=== PATIENT | female | born 1970 | race Caucasian/White ===

== ENCOUNTER 2017-07-27 05:30 | Emergency (ER) | payer BC ==
[~2017-07-27] VITALS: Ht 170.2 cm; Wt 74.4 kg
[2017-07-27 05:31] VITALS: BP 168/98; PULSE 93; RESP 18; TEMP 97.1; O2SAT 96
[2017-07-27] MEDS ORDERED: ONDANSETRON HCL 4 MG/2 ML VIAL IVP ONE (06:00)
[2017-07-27] MEDS ORDERED: SODIUM CHLORIDE 0.9% FLUSH 10 ML FLUSH IVF PRN ×2 (06:00→06:45)
--- NOTE | 2017-07-27 06:12 | PD ---
HPI Chief Complaint: Headache Time Seen by Provider: 06:00 Travel History International Travel<30 days: No Contact w/Intl Traveler<30days: No Traveled to known affect area: No History of Present Illness HPI 46 year old female presents to the emergency department by private transportation the care of her family for evaluation of headache. Patient states she awakened from sleep at 2 AM with her headache 8/10 in intensity that is not typical of her migraine headache history. Patient states pain was primarily posterior and in the neck area. Patient states that her migraines are typically more frontal. Patient states she took Relpax which she typically takes for her headaches and did not have relief. Patient states she also takes propranolol for history of hypertension and has been taking her medication routinely and has been compliant with this regimen. Patient also knows she's had some mild cold-like symptoms over the past week. Patient denies fever chills. Patient has had multiple episodes of vomiting this morning. Patient states she awakened at 2 AM with the headache and it was severe at that time. Patient does not report any confusion difficulty speaking or with her balance. No new upper extremity or lower extremity numbness tingling or weakness. Spouse does not note any change in her mentation or facial droop but thought she seemed a little off balance to him but not at this time. 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 Patient denies family history of cerebral aneurysm. Patient denies family history of migraine except now with her daughter having similar headaches associated with menses may be a familial connection. PFSH Past Medical History Narrative Medical SVT migraines hysterectomy; nursing notes reviewed ?: Not Social History Alcohol Use: No Tobacco Use: No Substance Use: No Allergies-Medications (Allergen,Severity, Reaction): Coded Allergies: sulfamethoxazole (Verified Allergy, Intermediate, 07/27/17) trimethoprim (Verified Allergy, Intermediate, 07/27/17) Reported Meds & Prescriptions Reported Meds & Active Scripts Active Reported Propranolol (Propranolol HCl) 10 Mg Tab 10 Mg PO Q12HR Relpax (Eletriptan) 20 Mg Tab 20 Mg PO ONCE PRN Narrative Medication Propranolol Relpax Review of Systems Except as stated in HPI: all other systems reviewed are Neg Physical Exam Narrative GENERAL: Well-developed well-nourished female in obvious discomfort no respiratory distress; GCS 15 SKIN: Warm and dry. HEAD: Atraumatic. Normocephalic. EYES: Pupils equal and round. Extraocular muscles intact. No scleral icterus. No injection or drainage. No papilledema with funduscopic exam ENT: No nasal bleeding or discharge. Mucous membranes pink and moist. NECK: Trachea midline. No JVD. Tenderness to palpation along the cervical spine and trapezius musculature with no bony step-off or tenderness as well as no meningismus or nuchal rigidity. CARDIOVASCULAR: Regular rate and rhythm. RESPIRATORY: No accessory muscle use. Clear to auscultation. Breath sounds equal bilaterally. GASTROINTESTINAL: Abdomen soft, non-tender, nondistended. Hepatic and splenic margins not palpable. MUSCULOSKELETAL: Extremities without clubbing, cyanosis, or edema. No obvious deformities. NEUROLOGICAL: Awake and alert. GCS 15. No obvious cranial nerve deficits, no facial droop. Motor grossly within normal limits. Five out of 5 muscle strength in the arms and legs. No limb ataxia. No pronator drift. Normal speech and no slurred speech. PSYCHIATRIC: Appropriate mood and affect; insight and judgment normal. Data Data Last Documented VS Vital Signs Date Time Temp Pulse Resp B/P (MAP) Pulse Ox O2 Delivery O2 Flow Rate FiO2 07/27/17 05:31 97.1 93 18 168/98 (121) 96 Orders Orders Complete Blood Count With Diff (07/27/17 06:00) Basic Metabolic Panel (Bmp) (07/27/17 06:00) Prothrombin Time / Inr (Pt) (07/27/17 06:00) Act Partial Throm Time (Ptt) (07/27/17 06:00) Ct Brain W/O Iv Contrast(Rout) (07/27/17 06:00) Ecg Monitoring (07/27/17 06:00) Iv Access Insert/Monitor (07/27/17 06:00) Oximetry (07/27/17 06:00) Sodium Chloride 0.9% Flush (Ns Flush) (07/27/17 06:00) Ondansetron Inj (Zofran Inj) (07/27/17 06:00) Morphine Inj (Morphine Inj) (07/27/17 06:30) Sodium Chloride 0.9% Flush (Ns Flush) (07/27/17 06:45) Cta Brain W Iv Contrast W 3d (07/27/17 06:43) Cta Neck W Iv Contrast W 3d (07/27/17 06:43) Prochlorperazine Inj (Compazine Inj) (07/27/17 07:00) Diphenhydramine Inj (Benadryl Inj) (07/27/17 07:00) Sodium Chlor 0.9% 1000 Ml Inj (Ns 1000 M (07/27/17 07:00) Labs Laboratory Tests Test 07/27/17 06:00 White Blood Count 5.8 TH/MM3 Red Blood Count 4.45 MIL/MM3 Hemoglobin 13.7 GM/DL Hematocrit 40.3 % Mean Corpuscular Volume 90.5 FL Mean Corpuscular Hemoglobin 30.8 PG Mean Corpuscular Hemoglobin Concent 34.1 % Red Cell Distribution Width 12.4 % Platelet Count 214 TH/MM3 Mean Platelet Volume 8.5 FL Neutrophils (%) (Auto) 56.9 % Lymphocytes (%) (Auto) 33.3 % Monocytes (%) (Auto) 7.5 % Eosinophils (%) (Auto) 1.4 % Basophils (%) (Auto) 0.9 % Neutrophils # (Auto) 3.3 TH/MM3 Lymphocytes # (Auto) 1.9 TH/MM3 Monocytes # (Auto) 0.4 TH/MM3 Eosinophils # (Auto) 0.1 TH/MM3 Basophils # (Auto) 0.1 TH/MM3 CBC Comment DIFF FINAL Differential Comment Blood Urea Nitrogen 11 MG/DL Creatinine 0.76 MG/DL Random Glucose 97 MG/DL Calcium Level 8.5 MG/DL Sodium Level 139 MEQ/L Potassium Level 3.3 MEQ/L Chloride Level 107 MEQ/L Carbon Dioxide Level 23.3 MEQ/L Anion Gap 9 MEQ/L Estimat Glomerular Filtration Rate 82 ML/MIN [facility] Medical Decision Making Medical Screen Exam Complete: Yes Emergency Medical Condition: Yes Medical Record Reviewed: Yes Differential Diagnosis Migraine variant, TIA, CVA, cerebral aneurysm, subarachnoid hemorrhage, cervical disc disease, HNP Narrative Course IV access obtained specimens collected and sent for resulting patient administered Zofran 4 mg IV morphine and stat CT brain noncontrast ordered patient is aware that imaging of the brain shows no acute abnormality we'll proceed with angiography headache and nausea some improved but still severe --cta ordered and compazine and benadryl ordered @ 0700 care signed over to Dr DíazKathryn Miranda MD Jul 27, 2017 06:12
[2017-07-27 06:24] LABS: AUTOMATED NEUTROPHIL # 3.3 TH/MM3 (1.8-7.7); BASOPHIL # 0.1 TH/MM3 (0-0.2); BASOPHIL % 0.9 % (0.0-2.0); EOSINOPHIL # 0.1 TH/MM3 (0-0.4); EOSINOPHIL % 1.4 % (0.0-4.0); HEMATOCRIT 40.3 % (35.0-46.0); HEMO FLAGS DIFF FINAL; LYMPH % 33.3 % (9.0-44.0); LYMPHOCYTE # 1.9 TH/MM3 (1.0-4.8); MEAN CELL VOLUME 90.5 FL (80.0-100.0); MEAN CORPUSCULAR HEMOGLOBIN 30.8 PG (27.0-34.0); MEAN CORPUSCULAR HGB CONC 34.1 % (32.0-36.0); MONO % 7.5 % (0.0-8.0); NEUT % 56.9 % (16.0-70.0); PLATELET COUNT 214 TH/MM3 (150-450); RED BLOOD COUNT 4.45 MIL/MM3 (4.00-5.30); RED CELL DISTRIBUTION WIDTH 12.4 % (11.6-17.2); WHITE BLOOD COUNT 5.8 TH/MM3 (4.0-11.0)
[2017-07-27 06:29] LABS: POTASSIUM 3.3 MEQ/L (3.5-5.1)
[2017-07-27] MEDS ORDERED: MORPHINE SULFATE 4 MG/ML INJ IV PUSH ONE (06:30)
[2017-07-27] MEDS ORDERED: RELP20TA PO (06:31)
[2017-07-27] MEDS ORDERED: PROP10TA6 PO (06:31)
[2017-07-27 06:33] LABS: BICARBONATE 23.3 MEQ/L (21.0-32.0)
--- NOTE | 2017-07-27 06:46 | RADRPT ---
EXAM DATE/TIME: 07/27/2017 06:22 [facility] COMPARISON: No previous studies available for comparison. INDICATIONS : Cephalgia. RADIATION DOSE: 55.99 CTDIvol (mGy) MEDICAL HISTORY : None SURGICAL HISTORY : None. ENCOUNTER: Initial ACUITY: 1 day PAIN SCALE: 9/10 LOCATION: occipital TECHNIQUE: Multiple contiguous axial images were obtained of the head. Using automated exposure control and adj ustment of the mA and/or kV according to patient size, radiation dose was kept as low as reasonably a chievable to obtain optimal diagnostic quality images. DICOM format image data is available electro nically for review and comparison. FINDINGS: CEREBRUM: The ventricles are normal for age. No evidence of midline shift, mass lesion, hemorrhage or acute in farction. No extra-axial fluid collections are seen. POSTERIOR FOSSA: The cerebellum and brainstem are intact. The 4th ventricle is midline. The cerebellopontine angle i s unremarkable. EXTRACRANIAL: The visualized portion of the orbits is intact. SKULL: The calvaria is intact. No evidence of skull fracture. CONCLUSION: Negative noncontrast CT Saqib Pierre MD on July 27, 2017 at 6:40 Board Certified Radiologist. This report was verified electronically.
[2017-07-27] MEDS ORDERED: SODIUM CHLOR 0.9% 1000 ML INJ 1,000 ML IV SCH (07:00)
[2017-07-27] MEDS ORDERED: diphenhydrAMINE HCL 50 MG/ML VIAL IV PUSH ONE (07:00)
[2017-07-27] MEDS ORDERED: PROCHLORPERAZINE INJ 10 MG/2 ML VIAL IV PUSH ONE (07:00)
[2017-07-27 07:02] LABS: APTT (PATIENT) 23.8 SEC (24.3-30.1); PROTHROMBIN TIME - PATIENT 9.8 SEC (9.8-11.6)
--- NOTE | 2017-07-27 07:27 | PD ---
Physical Exam Narrative Received sign out from previous team to follow up with CTA and reevaluate after compazine and benadryl. Please see previous provider's note for further details. 46yo F with PMH of migraine headache presents to the ED with c/o headache that started at 2am when she woke up. Said headache is from her neck up the occiput. No focal neurologic deficits. Associated with nausea. No nuchal rigidity on exam. Pt was given zofran and morphine and headache improved a little but still there. CT brain negative. Labs reviewed, no leukocytosis. Mild hypokalemia at 3.3. Pt reevaluated after compazine and benadryl and headache has improved markedly and almost gone. Pt feels much better and tolerating PO. Pt's headache started within [address] scan and feel that CT scan should be 100% sensitive for subarachnoid hemorrhage. Pt's symptoms has also improved and headache is almost resolved. CTA head and neck negative for aneurysm. Small aneurysm can be missed by CT if particularly at skull base. LP would be of benefit if strong concern by subarachnoid hemorrhage. I discussed the risk and benefit of lumbar puncture and pt is refusing lumbar puncture at this time. I do feel that since onset of headache is less than [address] and CTA is negative for aneurysm and pt is clinically better that I have low suspicion for SAH but still offered lumbar puncture. Pt feels better and wants to go home. Strict return precautions given. Data Data Last Documented VS Vital Signs Date Time Temp Pulse Resp B/P (MAP) Pulse Ox O2 Delivery O2 Flow Rate FiO2 07/27/17 10:23 72 15 122/72 (89) 98 07/27/17 09:35 Room Air 07/27/17 05:31 97.1 Orders Orders Complete Blood Count With Diff (07/27/17 06:00) Basic Metabolic Panel (Bmp) (07/27/17 06:00) Prothrombin Time / Inr (Pt) (07/27/17 06:00) Act Partial Throm Time (Ptt) (07/27/17 06:00) Ct Brain W/O Iv Contrast(Rout) (07/27/17 06:00) Ecg Monitoring (07/27/17 06:00) Iv Access Insert/Monitor (07/27/17 06:00) Oximetry (07/27/17 06:00) Sodium Chloride 0.9% Flush (Ns Flush) (07/27/17 06:00) Ondansetron Inj (Zofran Inj) (07/27/17 06:00) Morphine Inj (Morphine Inj) (07/27/17 06:30) Sodium Chloride 0.9% Flush (Ns Flush) (07/27/17 06:45) Cta Brain W Iv Contrast W 3d (07/27/17 06:43) Cta Neck W Iv Contrast W 3d (07/27/17 06:43) Prochlorperazine Inj (Compazine Inj) (07/27/17 07:00) Diphenhydramine Inj (Benadryl Inj) (07/27/17 07:00) Sodium Chlor 0.9% 1000 Ml Inj (Ns 1000 M (07/27/17 07:00) Iohexol 350 Inj (Omnipaque 350 Inj) (07/27/17 08:19) Ed Discharge Order (07/27/17 10:04) Labs Laboratory Tests Test 07/27/17 06:00 White Blood Count 5.8 TH/MM3 Red Blood Count 4.45 MIL/MM3 Hemoglobin 13.7 GM/DL Hematocrit 40.3 % Mean Corpuscular Volume 90.5 FL Mean Corpuscular Hemoglobin 30.8 PG Mean Corpuscular Hemoglobin Concent 34.1 % Red Cell Distribution Width 12.4 % Platelet Count 214 TH/MM3 Mean Platelet Volume 8.5 FL Neutrophils (%) (Auto) 56.9 % Lymphocytes (%) (Auto) 33.3 % Monocytes (%) (Auto) 7.5 % Eosinophils (%) (Auto) 1.4 % Basophils (%) (Auto) 0.9 % Neutrophils # (Auto) 3.3 TH/MM3 Lymphocytes # (Auto) 1.9 TH/MM3 Monocytes # (Auto) 0.4 TH/MM3 Eosinophils # (Auto) 0.1 TH/MM3 Basophils # (Auto) 0.1 TH/MM3 CBC Comment DIFF FINAL Differential Comment Prothrombin Time 9.8 SEC Prothromb Time International Ratio 1.0 RATIO Activated Partial Thromboplast Time 23.8 SEC Blood Urea Nitrogen 11 MG/DL Creatinine 0.76 MG/DL Random Glucose 97 MG/DL Calcium Level 8.5 MG/DL Sodium Level 139 MEQ/L Potassium Level 3.3 MEQ/L Chloride Level 107 MEQ/L Carbon Dioxide Level 23.3 MEQ/L Anion Gap 9 MEQ/L Estimat Glomerular Filtration Rate 82 ML/MIN [facility] Supervised Visit with CHRISSIE: No Interpretation(s) Last Impressions Neck CTA 07/27/17642 Signed Impressions: Service Date/Time: Thursday, July 27, 2017 08:00 - CONCLUSION: Negative Mayco Mata MD FACR Head CTA 07/27/17 0643 Signed Impressions: Service Date/Time: Thursday, July 27, 2017 08:00 - CONCLUSION: Negative for aneurysm. There is strong concern for subarachnoid hemorrhage lumbar puncture would be of benefit. Please see above discussion. Mayco Mata MD FACR Head CT 07/27/17 0600 Signed Impressions: Service Date/Time: Thursday, July 27, 2017 06:22 - CONCLUSION: Negative noncontrast CT Saqib Pierre MD Diagnosis Primary Impression: Headache Qualified Codes: R51 - Headache Patient Instructions: General Instructions Departure Forms: Tests/Procedures Additional Instruction: Please follow up with your primary care physician in 2-3 days. Return to the ED if symptoms worsen. Med/Other Pt SpecificInfo: Prescription(s) given Scripts Acetaminophen (Tylenol) 325 Mg Tab 650 MG PO Q6H Y for PAIN SCALE 1 TO 4, #20 TAB 0 Refills Prov: Emilia Díaz 07/27/17 Disposition: 01 DISCHARGE HOME Condition: Stable DíazEmilia Jul 27, 2017 07:27
[2017-07-27 07:40] VITALS: BP 141/93; PULSE 70; RESP 16; O2SAT 97
[2017-07-27] MEDS ORDERED: IOHEXOL 350 MG/ML 10 ML VIAL (for RAD DIAG) IVCONTRAST ONE (08:19)
[2017-07-27 09:35] VITALS: BP 121/74; PULSE 77; RESP 15; O2SAT 97
--- NOTE | 2017-07-27 09:38 | RADRPT ---
EXAM DATE/TIME: 07/27/2017 08:00 [facility] COMPARISON: No previous studies available for comparison. INDICATIONS : Evalaute for aneurysm. Cephalgia. IV CONTRAST: 75 cc Omnipaque 350 (iohexol) IV ; Cumulative dose for multiple exams. RADIATION DOSE: 42.21 CTDIvol (mGy) ; Combined studies MEDICAL HISTORY : None SURGICAL HISTORY : None. ENCOUNTER: Initial ACUITY: 1 day PAIN SCALE: 8/10 LOCATION: occipital TECHNIQUE: Volumetric scanning was performed using a multi-row detector CT scanner. The data was post processed with a variety of visualization algorithms including full volume maximum intensity projection, multi -planar sliding thin slab reformation, curved planar reformation, and surface rendering techniques. Using automated exposure control and adjustment of the mA and/or kV according to patient size, radiat ion dose was kept as low as reasonably achievable to obtain optimal diagnostic quality images. DICO M format image data is available electronically for review and comparison. FINDINGS: There is excellent visualization of the major intracranial arteries out to the second-order branch ve ssels. There is no evidence for aneurysm, vessel truncation or stenosis, and no evidence for vascula r malformation. Small aneurysms can be missed by CT it particularly at the skull base. CONCLUSION: Negative for aneurysm. There is strong concern for subarachnoid hemorrhage lumbar puncture would be of benefit. Please see above discussion. Mayco Mata MD FACR on July 27, 2017 at 9:33 Board Certified Radiologist. This report was verified electronically.
--- NOTE | 2017-07-27 09:38 | RADRPT ---
EXAM DATE/TIME: 07/27/2017 08:00 [facility] COMPARISON: No previous studies available for comparison. INDICATIONS : Anteriovenous malformation. IV CONTRAST: 75 cc Omnipaque 350 (iohexol) IV ; Cumulative dose for multiple exams. RADIATION DOSE: 42.21 CTDIvol (mGy) ; Combined studies MEDICAL HISTORY : None SURGICAL HISTORY : None. ENCOUNTER: Initial ACUITY: 1 day PAIN SCALE: 8/10 LOCATION: Bilateral neck Elevated flow velocities and ICA/CCA ratios have been found to correlate with increased degrees of vessel stenosis, calculated as percentage of diameter relative to a normal segment of distal ICA/CCA. TECHNIQUE: Volumetric scanning was performed using a multirow detector CT scanner. The data was post processed with a variety of visualization algorithms including full-volume maximum intensity projection, multip lanar sliding thin-slab reformation, curved-planar reformation, and surface-rendering techniques. Us ing automated exposure control and adjustment of the mA and/or kV according to patient size, radiatio n dose was kept as low as reasonably achievable to obtain optimal diagnostic quality images. DICOM f ormat image data is available electronically for review and comparison. FINDINGS: AORTIC ARCH: There is a three-vessel origin of the great vessels from the aorta. No evidence of ostial narrowing. RIGHT CAROTID: The common carotid artery is intact. The carotid bulb has a normal configuration without ulceration o r narrowing. The internal carotid artery lumen is smooth without stenosis. The external carotid jesus alberto ry is intact. LEFT CAROTID: The common carotid artery is intact. The carotid bulb has a normal configuration without ulceration or narrowing. The internal carotid artery lumen is smooth without stenosis. The external carotid ar sheila is intact. VERTEBRALS: The vertebral arteries have a symmetric diameter. No stenotic lesions are seen. CONCLUSION: Negative Mayco Mata MD FACR on July 27, 2017 at 9:35 Board Certified Radiologist. This report was verified electronically.
[2017-07-27] MEDS ORDERED: TYLE325T PO (10:02)
[2017-07-27 10:23] VITALS: BP 122/72
== END 2017-07-27 10:25 | disposition home or self-care (01) ==
LOC: PHED 05:30
DX: R51 Headache (principal); I10 Essential (primary) hypertension; M54.2 Cervicalgia
CPT/HCPCS: 70450; 70496; 70498; 80048; 85025; 85610; 85730; 96374; 96375; 99285; J0780; J1200; J2270; J2405; J7030; Q9967

== ENCOUNTER 2017-09-15 20:56 | Emergency (ER) | payer BC ==
[~2017-09-15] VITALS: Ht 170.2 cm; Wt 76.0 kg
[~2017-09-15 20:56] MED LIST: PROP10TA6 PO; RELP20TA PO; TYLE325T PO
[2017-09-15 21:21] VITALS: BP 159/85; PULSE 101; RESP 16; TEMP 98.1; O2SAT 97
--- NOTE | 2017-09-15 22:53 | PD ---
HPI Chief Complaint: Cold / Flu Symptoms Time Seen by Provider: 22:34 Travel History International Travel<30 days: No Contact w/Intl Traveler<30days: No Traveled to known affect area: No History of Present Illness HPI Patient has had a 2 week course of bronchitis-like symptoms went to urgent care. They gave her antibiotics and steroids.. Telling her that she had bronchitis . A few days later her family got sick they went back. Second time she had a flu swab done it was positive flu swab. She worsened and they said she needed an x-ray they said that she had pneumonia and put her on azithromycin she must have had the flu all along and now she had pneumonia and they gave her azithromycin and treated her outpatient now she has been having severe substernal xiphoid area pain she went to see her primary care doctor who did an x-ray to look for a fractured ribs from such coughing. Patient continues severe pain sub-xiphoid area worse with position. It is made worse with deep breathing it is made worse with position lying flat. She's been sleeping sitting up to keep from the pain. She is not working with her medication Motrin is not working. All the antibiotics and steroid she took did not help relieve her symptoms however her cough is mildly better but the pain is severe in her left sub-xiphoid area PFSH Past Surgical History Hysterectomy: Yes (2010) Social History Alcohol Use: No Tobacco Use: No Substance Use: No Allergies-Medications (Allergen,Severity, Reaction): Coded Allergies: sulfamethoxazole (Verified Allergy, Intermediate, 09/15/17) trimethoprim (Verified Allergy, Intermediate, 09/15/17) Reported Meds & Prescriptions Reported Meds & Active Scripts Active Ibuprofen 600 Mg Tab 600 Mg PO Q6H PRN Valium (Diazepam) 2 Mg Tab 2 Mg PO TID PRN Tramadol (Tramadol HCl) 50 Mg Tab 50 Mg PO Q6H PRN Tylenol (Acetaminophen) 325 Mg Tab 650 Mg PO Q6H PRN Reported Propranolol (Propranolol HCl) 10 Mg Tab 10 Mg PO Q12HR Relpax (Eletriptan) 20 Mg Tab 20 Mg PO ONCE PRN Review of Systems Except as stated in HPI: all other systems reviewed are Neg Cardiovascular: Positive: Chest Pain or Discomfort (severe left sided xiphoid area pain made worse with lying medication she is taking is not helping) Respiratory: Positive: Cough Physical Exam Narrative GENERAL: Holding her subxiphoid area appears to be leaning forward and in mild distress SKIN: Warm and dry. HEAD: Atraumatic. Normocephalic. EYES: Pupils equal and round. No scleral icterus. No injection or drainage. ENT: No nasal bleeding or discharge. Mucous membranes pink and moist. NECK: Trachea midline. No JVD. CARDIOVASCULAR: Regular rate and rhythm. Heart regular rate and rhythm RESPIRATORY: No accessory muscle use. Clear to auscultation. Breath sounds equal bilaterally. There is no area where I do not hear breath sounds no signs of pneumothorax. Clear to auscultation she has severe tenderness to her off of center right sided ribs right at the xiphoid process became tearful set up crying after I examined her and just gently touch that area GASTROINTESTINAL: Abdomen soft, non-tender, nondistended. Hepatic and splenic margins not palpable. MUSCULOSKELETAL: Extremities without clubbing, cyanosis, or edema. No obvious deformities. NEUROLOGICAL: Awake and alert. No obvious cranial nerve deficits. Motor grossly within normal limits. Five out of 5 muscle strength in the arms and legs. Normal speech. PSYCHIATRIC: Appropriate mood and affect; insight and judgment normal. Data Data Last Documented VS Vital Signs Date Time Temp Pulse Resp B/P (MAP) Pulse Ox O2 Delivery O2 Flow Rate FiO2 09/16/17 00:02 73 16 121/67 (85) 97 Room Air 09/15/17 21:[address] Thorax/ Chest Wo Iv Contras (09/15/17 ) Ketorolac Inj (Toradol Inj) (09/15/17 23:00) Diazepam (Valium) (09/15/17 23:00) Ed Discharge Order (09/16/17 00:37) [facility] Medical Decision Making Medical Screen Exam Complete: Yes Emergency Medical Condition: Yes Differential Diagnosis Costochondritis versus pneumothorax versus muscle strain versus rib fracture versus pneumonia versus GERD esophagitis reflux other Narrative Course CT done to look for small pneumothorax as well as an occult rib fracture given Toradol IM and Valium by mouth waiting results. CT is done and there is no pneumothorax there is no rib fracture and it is most likely costochondritis muscle spasm. I will treat her with ibuprofen and Valium follow-up as an outpatient Diagnosis Primary Impression: Chest pain Qualified Codes: R07.1 - Chest pain on breathing Additional Impression: Costochondral chest pain Scripts Ibuprofen (Ibuprofen) 600 Mg Tab 600 MG PO Q6H Y for Pain/Inflammation, #20 TAB 0 Refills Prov: Bill Mauricio MD 09/16/17 Diazepam (Valium) 2 Mg Tab 2 MG PO TID Y for MUSCLE SPASM, #10 TAB 0 Refills Prov: Bill Mauricio MD 09/16/17 Tramadol (Tramadol) 50 Mg Tab 50 MG PO Q6H Y for PAIN, #10 TAB 0 Refills Prov: Bill Mauricio MD 09/16/17 Disposition: 01 DISCHARGE HOME Condition: Good Bill Mauricio MD Sep 15, 2017 22:53
[2017-09-15] MEDS ORDERED: DIAZEPAM 5 MG TAB PO ONE (23:00)
[2017-09-15] MEDS ORDERED: KETOROLAC TROMETHAMINE 60 MG/2 ML (IM) VIAL IM ONE (23:00)
[2017-09-15 23:08] VITALS: BP 133/74; PULSE 79; RESP 16; O2SAT 98
[2017-09-16 00:02] VITALS: BP 121/67; PULSE 73; RESP 16; O2SAT 97
--- NOTE | 2017-09-16 00:14 | RADRPT ---
EXAM DATE/TIME: 09/15/2017 23:35 [facility] COMPARISON: No previous studies available for comparison. INDICATIONS : Right sided chest pain. Pneumothorax versus rib fracture. RADIATION DOSE: 7.98 CTDIvol (mGy) MEDICAL HISTORY : Hypertension. Recent pneumonia. SURGICAL HISTORY : None. ENCOUNTER: Initial ACUITY: 1 day PAIN SCALE: 7/10 LOCATION: Right chest TECHNIQUE: Volumetric scanning of the chest was performed. Using automated exposure control and adjustment of t he mA and/or kV according to patient size, radiation dose was kept as low as reasonably achievable to obtain optimal diagnostic quality images. DICOM format image data is available electronically for r eview and comparison. Follow-up recommendations for detected pulmonary nodules are based at a minimum on nodule size and pa tient risk factors according to Fleischner Society Guidelines. FINDINGS: LUNGS: There is no consolidation or pneumothorax. No concerning pulmonary nodule is visualized. PLEURAE: There is no pleural thickening or pleural effusion. MEDIASTINUM: Multiple densely calcified right hilar, right subcarinal, and right posterior mediastinal lymph nodes measuring up to 1.6 cm in size. AXILLAE: Within normal limits. No lymphadenopathy. MUSCULOSKELETAL: Within normal limits for patient age. MISCELLANEOUS: The visualized upper abdominal organs demonstrate no acute abnormality. Scattered punctate calcifica tions in the spleen. CONCLUSION: 1. No evidence of pneumothorax. 2. No fracture seen. 3. Evidence of prior granulomatous exposure with prominent calcified right hilar and mediastinal lymp h nodes and punctate calcifications throughout the spleen. Tej Temple MD on September 16, 2017 at 0:10 Board Certified Radiologist. This report was verified electronically.
[2017-09-16] MEDS ORDERED: TRAM50TA PO (00:35)
[2017-09-16] MEDS ORDERED: DIAZ2 PO (00:35)
[2017-09-16] MEDS ORDERED: IBUP-232 PO (00:38)
[2017-09-16 00:55] VITALS: BP 129/71
== END 2017-09-16 00:57 | disposition home or self-care (01) ==
LOC: PHED 20:56
DX: R07.1 Chest pain on breathing (principal); Z88.1 Allergy status to other antibiotic agents
CPT/HCPCS: 71250; 96372; 99285; J1885

== ENCOUNTER 2018-01-28 05:55 | Emergency (ER) | payer BC ==
[~2018-01-28] VITALS: Ht 170.2 cm; Wt 79.3 kg
[~2018-01-28 05:55] MED LIST changes: +DIAZ2 PO; +IBUP-232 PO; +TRAM50TA PO; -TYLE325T PO
[2018-01-28 05:58] VITALS: BP 146/99; PULSE 91; RESP 14; TEMP 97.7; O2SAT 98
--- NOTE | 2018-01-28 06:23 | PD ---
HPI Chief Complaint: Headache Time Seen by Provider: 06:15 Travel History International Travel<30 days: No Contact w/Intl Traveler<30days: No Traveled to known affect area: No History of Present Illness HPI 47yo F with PMH of migraine headache presents to the ED with c/o headache since last night. Said it started last night but it wasnt back but worst this morning. Said she took her relpax and around 3am but vomited after so decided she needs to come in. Said it feels like her migraine headache. Denies any fever, chest pain, sob, abdominal pain, focal weakness or numbness, trauma. Pt does have some right sided neck pain. She was seen here for similar headache and had CT brain , CTA head and neck in 07/2017 that were negative. PFSH Past Medical History Diminished Hearing: No Hypertension: Yes Immunizations Current: No Migraines: Yes Tetanus Vaccination: Unknown Influenza Vaccination: Yes ?: Not Past Surgical History Hysterectomy: Yes Tonsillectomy: Yes Other Surgery: Yes (Knee, Left shoulder) Social History Alcohol Use: No Tobacco Use: No Substance Use: No Allergies-Medications (Allergen,Severity, Reaction): Coded Allergies: sulfamethoxazole (Verified Allergy, Intermediate, 01/28/18) trimethoprim (Verified Allergy, Intermediate, 01/28/18) Reported Meds & Prescriptions Reported Meds & Active Scripts Active Imitrex Inj (Sumatriptan Succinate) 6 Mg/0.5 Ml Inj 6 Mg SQ ONCE PRN May repeat dose in 1 hour if needed. Zofran Odt (Ondansetron Odt) 4 Mg Tab 4 Mg SL Q6HR PRN Ibuprofen 600 Mg Tab 600 Mg PO Q6H PRN Valium (Diazepam) 2 Mg Tab 2 Mg PO TID PRN Reported Propranolol (Propranolol HCl) 10 Mg Tab 10 Mg PO Q12HR Relpax (Eletriptan) 20 Mg Tab 20 Mg PO ONCE PRN Review of Systems Except as stated in HPI: all other systems reviewed are Neg Physical Exam Narrative GENERAL: 47yo F in moderate distress. SKIN: Diaphoretic. HEAD: Atraumatic. Normocephalic. EYES: Pupils equal and round. No scleral icterus. No injection or drainage. ENT: No nasal bleeding or discharge. Mucous membranes pink and moist. NECK: Trachea midline. No JVD. CARDIOVASCULAR: Regular rate and rhythm. No murmur appreciated. RESPIRATORY: No accessory muscle use. Clear to auscultation. Breath sounds equal bilaterally. GASTROINTESTINAL: Abdomen soft, non-tender, nondistended. MUSCULOSKELETAL: No obvious deformities. No clubbing. No cyanosis. No edema. NEUROLOGICAL: Awake and alert. No obvious cranial nerve deficits. Motor grossly within normal limits in all extremities. Sensation intact. Normal speech. PSYCHIATRIC: Appropriate mood and affect; insight and judgment normal. Data Data Last Documented VS Vital Signs Date Time Temp Pulse Resp B/P (MAP) Pulse Ox O2 Delivery O2 Flow Rate FiO2 01/28/18 07:40 82 14 139/73 (95) 94 Room Air 01/28/18 05:58 97.7 Orders Orders Prochlorperazine Inj (Compazine Inj) (01/28/18 06:30) Diphenhydramine Inj (Benadryl Inj) (01/28/18 06:30) Sodium Chlor 0.9% 1000 Ml Inj (Ns 1000 M (01/28/18 06:30) Ed Discharge Order (01/28/18 07:45) MDM Medical Decision Making Medical Screen Exam Complete: Yes Emergency Medical Condition: Yes Differential Diagnosis Migraine headache vs. tension headache Narrative Course 47yo F with headache since last night but worst this morning with nausea and vomiting. Feels like her migraine. Pt was given compazine, diphenhydramine and NS IVF last night so will do the same and reevaluate. Pt seen at end of my shift and sign out to next team to reevaluate after medications. Diagnosis Primary Impression: Migraine headache Scripts Sumatriptan Inj (Imitrex Inj) 6 Mg/0.5 Ml Inj 6 MG SQ ONCE Y for MIGRAINE HEADACHE, #2 VIAL 0 Refills May repeat dose in 1 hour if needed. Prov: Alex Rizo MD 01/28/18 Ondansetron Odt (Zofran Odt) 4 Mg Tab 4 MG SL Q6HR Y for Nausea/Vomiting, #15 TAB 0 Refills Prov: Alex Rizo MD 01/28/18 Emilia Díaz DO Jan 28, 2018 06:23
[2018-01-28] MEDS ORDERED: SODIUM CHLOR 0.9% 1000 ML INJ 1,000 ML IV ONE (06:30)
[2018-01-28] MEDS ORDERED: diphenhydrAMINE HCL 50 MG/ML VIAL IV PUSH ONE (06:30)
[2018-01-28] MEDS ORDERED: PROCHLORPERAZINE INJ 10 MG/2 ML VIAL IV PUSH ONE (06:30)
[2018-01-28 07:40] VITALS: BP 139/73; PULSE 82; RESP 14; O2SAT 94
[2018-01-28] MEDS ORDERED: SUMA6P SQ (07:40)
[2018-01-28] MEDS ORDERED: ZOFR4TAB3 SL (07:40)
--- NOTE | 2018-01-28 07:40 | PD ---
Physical Exam Date Seen by Provider: Jan 28, 2018 Time Seen by Provider: 07:38 Narrative 47-year-old female who presented with complaint of migraine headache. She was seen by Dr. Díaz who has ordered medications. The patient is feeling better at this time. She has problems with her migraine headaches when she gets some at night because she vomits and is unable to retain her Relpax. I will prescribe some Zofran and also injectable Imitrex Data Data Last Documented VS Vital Signs Date Time Temp Pulse Resp B/P (MAP) Pulse Ox O2 Delivery O2 Flow Rate FiO2 01/28/18 06:10 98 Room Air 01/28/18 05:58 97.7 91 14 146/99 (115) Orders Orders Prochlorperazine Inj (Compazine Inj) (01/28/18 06:30) Diphenhydramine Inj (Benadryl Inj) (01/28/18 06:30) Sodium Chlor 0.9% 1000 Ml Inj (Ns 1000 M (01/28/18 06:30) MDM Medical Record Reviewed: No Supervised Visit with CHRISSIE: No Differential Diagnosis Differential includes migraine headache, tension headache Narrative Course Patient has responded well to intravenous Compazine Diagnosis Primary Impression: Migraine headache Scripts Sumatriptan Inj (Imitrex Inj) 6 Mg/0.5 Ml Inj 6 MG SQ ONCE Y for MIGRAINE HEADACHE, #2 VIAL 0 Refills May repeat dose in 1 hour if needed. Prov: Alex Rizo MD 01/28/18 Ondansetron Odt (Zofran Odt) 4 Mg Tab 4 MG SL Q6HR Y for Nausea/Vomiting, #15 TAB 0 Refills Prov: Alex Rizo MD 01/28/18 Disposition: 01 DISCHARGE HOME Condition: Stable Alex Rizo MD Jan 28, 2018 07:40
== END 2018-01-28 07:50 | disposition home or self-care (01) ==
LOC: PHED 05:55
DX: G43.909 Migraine, unspecified, not intractable, without status migrainosus (principal); R11.10 Vomiting, unspecified; M54.2 Cervicalgia; I10 Essential (primary) hypertension
CPT/HCPCS: 96361; 96374; 96375; 99284; J0780; J1200; J7030